=== PATIENT | male | born 1980 | race Caucasian/White ===

== ENCOUNTER → 2016-03-29 | Outpatient (CLI) | payer BC | LOC: BHSO 10:53 | DX: F31.81 Bipolar II disorder (principal) ==

== ENCOUNTER → 2016-07-09 | Outpatient (CLI) | payer BC | LOC: BHSO 14:35 | DX: F33.1 Major depressive disorder, recurrent, moderate (principal) ==

== ENCOUNTER → 2017-01-10 | Outpatient (CLI) | payer BC | LOC: BHSO 10:49 | DX: F41.1 Generalized anxiety disorder (principal) ==